=== PATIENT | male | born 1995 | race Caucasian/White ===

== ENCOUNTER 2018-08-21 20:55 | Emergency (ER) | payer SELFPAY ==
[~2018-08-21] VITALS: Ht 182.9 cm; Wt 77.0 kg
[2018-08-21 21:11] VITALS: BP 132/88
== END 2018-08-21 22:00 | disposition left against medical advice (07) ==
LOC: ER 20:55
DX: Z53.21 Procedure and treatment not carried out due to patient leaving prior to being seen by health care provider (principal)

== ENCOUNTER 2019-04-09 06:33 | Emergency (ER) | payer MEDICAID ==
[~2019-04-09] VITALS: Ht 170.2 cm; Wt 71.0 kg
[2019-04-09] MEDS ORDERED: KETOROLAC 30MG/ML VIAL IV STA (07:13)
[2019-04-09] MEDS ORDERED: SODIUM CHLORIDE 0.9% 1,000 ML IV ONE (07:13)
[2019-04-09] MEDS ORDERED: ONDANSETRON HCL 4MG/2ML INJ IV STA (07:13)
[2019-04-09] MEDS ORDERED: MORPHINE SULFATE 4 MG/ML CPJ (NOT FOR IM USE) IV STA (07:13)
[2019-04-09 07:49] LABS: CLARITY URINE TURBID (CLEAR); COLOR URINE YELLOW (YELLOW); KETONES URINE NEGATIVE (NEGATIVE); LEUKOCYTE ESTERASE URINE NEGATIVE (NEGATIVE); NITRITE URINE NEGATIVE (NEGATIVE); OCCULT BLOOD URINE NEGATIVE (NEGATIVE); PH URINE 8.5 (4.5-8.0); PROTEIN URINE NEGATIVE (NEGATIVE); SPECIFIC GRAVITY URINE 1.021 (1.005-1.030); UROBILINOGEN URINE 0.2 E.U./dL (0.2-1.0)
[2019-04-09 08:11] LABS: BASOPHILS % 0.5 % (0.0-2.0); EOSINOPHILS % 0.7 % (0.0-5.0); HEMOGLOBIN. 16.8 g/dL (14.0-18.0); LYMPHOCYTES % 12.1 % (20.0-50.0); MEAN CORPUSCULAR HEMOGLOBIN 32.6 pg (28.0-32.0); MEAN CORPUSCULAR VOLUME 93.1 fL (80.0-94.0); MEAN PLATELET VOLUME 7.7 fl (7.4-10.4); MONOCYTES % 6.3 % (2.0-8.0); NEUTROPHILS % 80.4 % (40.0-76.0); PLATELET 273 x1000/uL (130-400); RED BLOOD CELL COUNT 5.15 mill/uL (4.7-6.1); RED CELL DISTRIBUTION WIDTH 13.5 % (11.6-14.6)
[2019-04-09 08:13] LABS: CHLORIDE 108 mEq/L (98-107)
[2019-04-09 09:50] VITALS: BP 135/80
== END 2019-04-09 09:52 | disposition home or self-care (01) ==
LOC: ER 07:17
DX: R10.12 Left upper quadrant pain (principal); J45.909 Unspecified asthma, uncomplicated; F12.10 Cannabis abuse, uncomplicated
CPT/HCPCS: 36415; 71045; 74176; 80053; 81003; 83605; 83690; 84484; 85025; 85610; 93005; 96361; 96374; 96375; 99284; J1885; J2270; J2405; J7030

== ENCOUNTER 2023-05-17 19:04 | Emergency (ER) | payer MEDICAID, OTHER ==
[~2023-05-17] VITALS: Ht 167.6 cm; Wt 73.0 kg
[2023-05-17 19:32] VITALS: BP 135/82; O2SAT 97
[2023-05-17] MEDS ORDERED: LIDO700A15 TP ×2 (22:08)
[2023-05-17] MEDS ORDERED: KETOROLAC 30MG/ML VIAL IM ONE (22:30)
[2023-05-17] MEDS ORDERED: NAPR-1176 MT (23:57)
[2023-05-18 00:39] VITALS: PULSE 95; RESP 16; TEMP 98.8
== END 2023-05-18 00:41 | disposition home or self-care (01) ==
LOC: ER 19:16
DX: M25.572 Pain in left ankle and joints of left foot (principal); F12.10 Cannabis abuse, uncomplicated
CPT/HCPCS: 73610; 96372; 99283; J1885; Z7610